=== PATIENT | female | born 1995 | race Caucasian/White ===

== ENCOUNTER → 2021-02-19 14:02 | Outpatient (CLI) | payer OTHER, SELFPAY ==
[2021-02-19 15:25] LABS: Vitamin D,25 Hydroxy 34.9 ng/mL
[2021-02-19 15:26] LABS: Thyroid Stim Hormone (TSH) 1.08 uIU/mL (0.358-3.74)
[2021-02-22 09:00] LABS: Thyroid Peroxidase AB < 8 IU/mL (0-34)
== END ==
PROVIDERS: Referring Provider Internal Medicine Endocrinology, Diabetes & Metabolism; Visit Provider Internal Medicine Endocrinology, Diabetes & Metabolism
DX: E55.9 Vitamin D deficiency, unspecified (principal); R94.6 Abnormal results of thyroid function studies
CPT/HCPCS: 36415; 82306; 84439; 84443; 86376